=== PATIENT | male | born 1970 | race Caucasian/White ===

== ENCOUNTER 2018-03-07 13:25 | Emergency (ER) | payer BC ==
[2018-03-07 14:22] VITALS: BP 150/91; PULSE 82; RESP 18; TEMP 98.2
--- NOTE | 2018-03-07 14:51 | ED ---
General Adult HPI - General Chief complaint: Upper Respiratory Infection Stated complaint: cough/COPD Time Seen by Provider: 03/07/18 14:44 Source: patient, RN notes reviewed Mode of arrival: ambulatory Limitations: no limitations - History of Present Illness Initial comments: Patient 48-year-old male significant past medical history for COPD, presented to the emergency room today with a chief complaint of cough congestion over the last 2 days. Ruggiero to green sputum production. Patient states currently at [place] for rehab. States that they listened to his lungs and thought he should come to the emergency room for evaluation. Patient denies any complaints. Patient denies any recent fever, chills, shortness of breath, chest pain, back pain, abdominal pain, nausea or vomiting, numbness or tingling, headaches or visual changes, or any other complaints. - Related Data Previous Rx's Medication Instructions Recorded Azithromycin [Zithromax Z-pack] 0 mg PO DIRECTED #6 tab 03/07/18 predniSONE 20 mg PO DIRECTED #12 tab 03/07/18 Allergies Allergy/AdvReac Type Severity Reaction Status Date / Time ketoconazole [From Nizoral] Allergy Unknown Verified 03/07/18 14:22 Review of Systems ROS Statement: Those systems with pertinent positive or pertinent negative responses have been documented in the HPI. ROS Other: All systems not noted in ROS Statement are negative. Past Medical History Past Medical History: COPD, Hypertension Additional Past Medical History / Comment(s): hep C History of Any Multi-Drug Resistant Organisms: None Reported Past Surgical History: Heart Catheterization Past Psychological History: Anxiety Smoking Status: Current every day smoker Past Alcohol Use History: None Reported Past Drug Use History: Cocaine General Exam - General Exam Comments Initial Comments: General: The patient is awake and alert, in no distress, and does not appear acutely ill. Eye: Pupils are equal, round and reactive to light, extra-ocular movements are intact. No nystagmus. There is normal conjunctiva bilaterally. No signs of icterus. Ears, nose, mouth and throat: There are moist mucous membranes and no oral lesions. Neck: The neck is supple, there is no tenderness or JVD. Cardiovascular: There is a regular rate and rhythm. No murmur, rub or gallop is appreciated. Respiratory: Decreased lung sounds bilaterally. respirations are non-labored, breath sounds are equal. No stridor, rales, or rhonchi. Musculoskeletal: Normal ROM, no tenderness. Strength 5/5. Sensation intact. Pulses equal bilaterally 2+. Neurological: A&O x 3. CN II-XII intact, There are no obvious motor or sensory deficits. Coordination appears grossly intact. Speech is normal. Skin: Skin is warm and dry and no rashes or lesions are noted. Psychiatric: Cooperative, appropriate mood & affect, normal judgment. Limitations: no limitations Course Vital Signs 03/07/18 14:19 Temperature 98.2 F Pulse Rate 82 Respiratory 18 Rate Blood Pressure 150/91 O2 Sat by Pulse 96 Oximetry Medical Decision Making - Medical Decision Making Patient's chest x-ray reviewed as negative for any sign of pneumonia. Patient does have history of COPD. Patient will be given antibiotics cover for bronchitis infection of azithromycin along with steroid Dosepak. Advised to follow family doctor return if symptoms increase or worsen. Disposition Clinical Impression: Acute bronchitis Disposition: HOME SELF-CARE Condition: Good Instructions: Acute Bronchitis (ED) Additional Instructions: Please use medication as discussed. Please follow-up with family doctor in the next 2 days of symptoms have not improved. Please return to emergency room if the symptoms increase or worsen or for any other concerns. Prescriptions: Azithromycin [Zithromax Z-pack] 0 mg PO DIRECTED #6 tab predniSONE 20 mg PO DIRECTED #12 tab Is patient prescribed a controlled substance at d/c from ED?: No Referrals: Nonstaff,Physician [Primary Care Provider] - 1-2 days Time of Disposition: 15:24
--- NOTE | 2018-03-07 15:18 | XR ---
EXAMINATION TYPE: XR chest 2V DATE OF EXAM: 03/07/2018 COMPARISON: NONE HISTORY: COPD with cough for one day. TECHNIQUE: Frontal and lateral views of the chest are obtained. FINDINGS: There is left basilar linear scarring and/or atelectasis. There is no focal air space opaci ty, pleural effusion, or pneumothorax seen. The cardiac silhouette size is within normal limits. Met allic zipper overlies the central upper abdomen on frontal view. The osseous structures are intact. IMPRESSION: No suspicious acute infiltrate.
== END 2018-03-07 15:36 | disposition home or self-care (01) ==
LOC: EC 13:25
DX: J20.9 Acute bronchitis, unspecified (principal); J44.0 Chronic obstructive pulmonary disease with (acute) lower respiratory infection; F17.200 Nicotine dependence, unspecified, uncomplicated; Z88.8 Allergy status to other drugs, medicaments and biological substances
CPT/HCPCS: 71046; 99283